=== PATIENT | male | born 1990 | race African-American/Black ===

== ENCOUNTER 2019-03-23 03:31 | Inpatient (IN) ==
[2019-03-23 04:32] LABS: Alanine Aminotransferase 36 U/L (12-78); Albumin Level 4.3 gm/dl (3.4-5.0); Aspartate Aminotransferase 37 U/L (15-37); BUN Creatinine Ratio 5.7 (10-20); Blood Urea Nitrogen 7 mg/dl (7-18); Calcium 8.5 mg/dl (8.5-10.1); Carbon Dioxide 27 mmol/L (21-32); Chloride 107 mmol/L (98-107); Creatinine Clr Calc Pharmacy 127.4 ml/min; Est GFR (African American) 96.1; Est GFR (Non-African American) 82.9; Glucose 87 mg/dl (70-99); Potassium 3.3 mmol/L (3.5-5.1); Sodium 140 mmol/L (136-145)
[2019-03-23 04:35] LABS: Albumin Globulin Ratio 1.2 (0.9-2); Alkaline Phosphatase 55 U/L (45-117); Bilirubin,Total 0.6 mg/dl (0.2-1); Globulin 3.5 gm/dl (2.5-4.0); Total Protein 7.8 gm/dl (6.4-8.2)
[2019-03-23 05:47] LABS: Troponin I < 0.015 ng/ml (0-0.045)
[2019-03-23 05:48] LABS: Basophils # (auto) 0.02 K/uL (0-0.2); Basophils % (auto) 0.4 %; Eosinophils # (auto) 0.23 K/uL (0-0.5); Eosinophils % (auto) 5.2 %; Hematocrit (blood only) 42.7 % (42-52); Hemoglobin 14.8 g/dL (14.0-18.0); Lymphocytes # (auto) 1.89 K/uL (1.2-3.4); Lymphocytes % (auto) 42.5 %; Mean Corpuscular Hemoglobin 30.5 pg (25-34); Mean Corpuscular Hgb Conc 34.7 g/dL (32-36); Monocytes # (auto) 0.31 K/uL (0.11-0.59); Neutrophils % (auto) 44.9 %; Platelet Count 274 K/uL (130-400); RDW Coefficient of Variation 13.2 % (11.5-14.5); RDW Standard Deviation 42.6 fL (36.4-46.3); Red Blood Count 4.85 M/uL (4.7-6.1); White Blood Count 4.45 K/uL (4.8-10.8)
[2019-03-23] MEDS ORDERED: GABAPENTIN 1200MG ALCOHOL WITHDRAWAL LOAD PO STA (06:53)
[2019-03-23] MEDS ORDERED: ACETAMINOPHEN 325 MG TAB PO PRN (06:53)
[2019-03-23] MEDS ORDERED: MULTI-VITAMIN INFUSION 10 ML, THIAMINE HCL 100 MG, FOLIC ACID 1 MG in SODIUM CHLORIDE 0... IV ONE (06:53)
[2019-03-23] MEDS ORDERED: SODIUM CHLORIDE 0.9% 1000ML 1,000 ML IV SCH (06:53)
[2019-03-23] MEDS ORDERED: LORazepam 2 MG/4 ML VIAL IV PRN (06:53)
[2019-03-23] MEDS ORDERED: LORazepam 1 MG/2 ML VIAL IV PRN (06:53)
[2019-03-23] MEDS ORDERED: NITROGLYCERIN SL 0.4 MG/TAB TAB SL PRN (06:53)
[2019-03-23] MEDS ORDERED: LORazepam 3 MG/6 ML VIAL IV PRN (06:53)
[2019-03-23] MEDS ORDERED: ATIVAN IV ALCOHOL WITHDRAWL IV PRN (06:53)
[2019-03-23] MEDS ORDERED: ONDANSETRON INJ 2 MG/ML 2 ML VIAL IV PRN (06:53)
[2019-03-23] MEDS ORDERED: GABAPENTIN 600 MG TAB PO SCH ×2 (08:00→14:00)
[2019-03-23] MEDS: POTASSIUM CHLORIDE / WTR 10 MEQ/100 ML PLCT IV SCH ×2 (08:03→10:31)
--- NOTE | 2019-03-23 09:16 | History and Physical Report ---
DATE OF ADMISSION: 03/23/2019 CHIEF COMPLAINT: Alcohol intoxication. HISTORY OF PRESENT ILLNESS: This is a 28-year-old male who was found with alcohol intoxication in [facility] and was brought into the hospital. Currently, the patient seems to be somewhat pleasantly confused. He says he drinks alcohol but says he drinks once in a while. He can tell his name, when asked his date of he repeats his name and he could tell this is March and he says this is [place] when I asked where he is. He denies any pain. Denies any headache, no chest pain, no abdominal pain, no nausea. Speaks in a very low voices, says he is doing fine and keeps on laughing. Could not get complete history from the patient because he appears in somewhat altered state. His alcohol level is 295. Drug screen was ordered which is still not collected at this time and the patient's systolic blood pressure in the 90s, afebrile. The question of second degree heart block on the monitor and EKG shows diffuse ST elevations,possible pericarditis. ALLERGIES: Could not know at this time. PAST MEDICAL HISTORY: The patient denies any past medical history. PAST SURGICAL HISTORY: Denies any past surgical history. MEDICATIONS: None. FAMILY HISTORY: The patient denies any family history. SOCIAL HISTORY: He says he only drinks alcohol. Denies any smoking or drugs. REVIEW OF SYSTEMS: As per HPI, could not get complete review of symptoms. PHYSICAL EXAMINATION: GENERAL: The patient is alert and awake, not in acute distress, seemed to be pleasantly confused. VITAL SIGNS: Temperature 36.3, pulse 62, respiratory rate 18, blood pressure 93/50, oxygen 99% on room air. HEENT: No pallor, no icterus. Pupils equal, round, reactive to light. NECK: No JVD, no neck masses, no carotid bruits. CARDIOVASCULAR: S1, S2 heard, regular rate and rhythm, no murmur, no gallop. RESPIRATORY SYSTEM: Normal AP diameter. No accessory muscle use. No wheezing, no crackles. ABDOMEN: Soft, bowel sounds present, nontender. No distention. CENTRAL NERVOUS SYSTEM: Alert and awake, oriented to name, thinks he is in [place] and says this is March. Speech is clear. Obeys commands and moves extremities. EXTREMITIES: No edema, no erythema. LABORATORY DATA: WBC 4.4, hemoglobin 14.8, hematocrit 42.7, platelets 274. Sodium 140, potassium 3.3, chloride 107, bicarbonate 27, BUN 7, creatinine 1.1, serum glucose 87, calcium 8.4, total bilirubin 0.6, AST 37, ALT 36, alkaline phosphatase is 54. Troponin I less than 0.015. Ethyl alcohol 295. EKG: Normal sinus rhythm at [address] changes, possible acute pericarditis. ASSESSMENT AND PLAN: This is a 28-year-old male who presents with alcohol intoxication. 1. Alcohol intoxication. Alcohol level is 295. Patient is currently confused. Patient says he drinks once in a while, but seems pleasantly confused at this time, so we will monitor him in tele floor. Keep him on clear liquid diet, IV fluids. We will give him banana bag, IV thiamine, IV folic acid daily. Follow folate levels and vitamin levels.. Follow repeat LFTs. We will keep him on alcohol withdrawal protocol with gabapentin, IV Ativan p.r.n. 2. EKG changes. There is question of secondary heart block on the monitor and EKG shows diffuse ST elevations and possible pericarditis. The patient denies chest pain. We will follow serial cardiac enzymes, echocardiogram, consult cardiology for further recommendations. We will follow urine drug screen. 3. Deep venous thrombosis prophylaxis, sequential compression devices for now. 4. Disposition: Admit to tele floor. Expect discharge home and follow with his family doctor. Code status. full code. MTDD
--- NOTE | 2019-03-23 10:08 | Electrocardiogram Report ---
Test Reason : Blood Pressure : / mmHG Vent. Rate : 060 BPM Atrial Rate : 060 BPM P-R Int : 180 ms QRS Dur : 092 ms QT Int : 422 ms P-R-T Axes : 066 044 050 degrees QTc Int : 422 ms Normal sinus rhythm Acute pericarditis vs. repolarization variant, clinical correlation necessary Abnormal ECG No previous ECGs available Confirmed by Himanshu Meadows ([id number]) on 03/23/2019 10:07:59 AM Referred By: REFERRED SELF Confirmed By:Himanshu Meadows
--- NOTE | 2019-03-23 10:14 | Cardiology Progress Note ---
Date of Service March 23, 2019 Assessment & Plan (1) Alcohol overdose: (2) Second degree heart block: Laboratory studies are relevant for a potassium level of 3.4 this morning, he is received IV replacement in the interim. EKG performed this morning 03/23/2019 at 5:06 AM revealed normal sinus rhythm at 60 bpm with early repolarization.Similar findings were noted on repeat EKG at 8 AM. I believe the patient had transient 2-1 AV block in the setting of high vagal tone. He was apparently somnolent in the setting of acute alcohol ingestion, and woke up and vomited. No other rhythm disturbances noted. Await repeat chemistry panel to be performed at about 12 noon today to reassess electrolytes. An echocardiogram has been performed and will be reviewed. Patient was counseled on the need to not overindulge in alcohol. He denies any past history of syncope. Further recommendations to be forthcoming after I review his echo. Subjective Patient is awake and conversant. Feels well. Denies any chest discomfort or shortness of breath. 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 He was visiting his brother at [facility], and he states that he had too much to drink last night. He arrived to the hospital via EMS just after 3 AM having been found sleeping on the ledge by the [email or web address] store. He states that he does not typically drink to excess and this was a rare event for him. He describes that at baseline he participates in athletics without physical limitation, and he is never had any syncopal episodes per his description. At 3:51 AM the patient was observed on telemetry to have a 1 minute episode of transient Mobitz type II second-degree AV block with 2-1 conduction that lasted approximately a minute. The patient does not recall what was going on during this time, but per my discussion with nursing, he had apparently been sleeping, and then woke up, was nauseous and vomited, and this correlated with when he had the transient bradycardia. Review of Systems Review of Systems: All systems reviewed & are unremarkable except as noted in HPI & below Physical Exam Physical Exam: Temp Pulse Resp BP Pulse Ox 36.6 C 75 18 117/79 100 03/23/19 06:50 03/23/19 06:50 03/23/19 06:50 03/23/19 06:50 03/23/19 06:50 Constitutional: WD/WN, vitals as above Respiratory: normal respiratory effort, lungs clear to auscultation Cardiovascular: RRR, no murmur, no edema Gastrointestinal (Abdomen): normal bowel sounds, soft, nontender, no hepatosplenomegaly Skin: no rashes, warm and dry Neurologic: PERRL, EOMI, accommodation nl, no face palsy, no dysarthria Results & Data Vital Signs (Past 12 Hours) Vital Signs Temp Pulse Pulse Resp BP BP Pulse Ox 03/23/19 06:50 36.6 C 75 18 117/79 100 03/23/19 06:31 66 20 97/66 L 93 03/23/19 05:38 62 18 93/50 L 99 03/23/19 05:02 63 18 99/61 L 99 03/23/19 04:08 62 16 125/67 98 03/23/19 03:45 99 03/23/19 03:41 36.3 C L 95 H 18 118/83 99 (1) Alcohol overdose Encounter type: initial encounter Injury intent: accidental or unintentional Qualified Code(s): T51.91XA - Toxic effect of unspecified alcohol, accidental (unintentional), initial encounter
--- NOTE | 2019-03-23 10:17 | Electrocardiogram Report ---
Test Reason : Blood Pressure : / mmHG Vent. Rate : 073 BPM Atrial Rate : 073 BPM P-R Int : 156 ms QRS Dur : 092 ms QT Int : 404 ms P-R-T Axes : 088 089 040 degrees QTc Int : 445 ms Normal sinus rhythm Acute pericarditis vs. repolarization variant Borderline ECG When compared with ECG of 23-MAR-2019 05:06, No significant change was found Confirmed by Himanshu Meadows ([id number]) on 03/23/2019 10:16:34 AM Referred By: REFERRED SELF Confirmed By:Himanshu Meadows
[2019-03-23 12:15] LABS: BUN Creatinine Ratio 4.3 (10-20); Blood Urea Nitrogen 4 mg/dl (7-18); Calcium 8.4 mg/dl (8.5-10.1); Carbon Dioxide 27 mmol/L (21-32); Chloride 110 mmol/L (98-107); Creatinine Clr Calc Pharmacy 177.4 ml/min; Est GFR (African American) 135.8; Est GFR (Non-African American) 117.2; Glucose 86 mg/dl (70-99); Magnesium 2.2 mg/dl (1.8-2.4); Potassium 3.8 mmol/L (3.5-5.1); Sodium 143 mmol/L (136-145)
[2019-03-23 12:27] LABS: Troponin I < 0.015 ng/ml (0-0.045)
--- NOTE | 2019-03-23 12:29 | Hospitalist Progress Note ---
Date of Service March 23, 2019 Assessment & Plan (1) Alcohol overdose: "HISTORY OF PRESENT ILLNESS: This is a 28-year-old male who was found with alcohol intoxication in [facility] and was brought into the hospital. Currently, the patient seems to be somewhat pleasantly confused. He says he drinks alcohol but he really drinks once in a while. He says he can tell his name when asked his date of he repeats his name and he could tell this is March and he says this is [place] when I asked where he is. He denies any pain. Denies any headache, no chest pain, no abdominal pain, no nausea. Speaks in a very low voices, says he is doing fine and keeps on laughing. Could not get complete history from the patient because he appears in somewhat altered state. His alcohol level is 295. No drug screen was ordered which is still not collected at this time and the patient's systolic blood pressure in the 90s, afebrile. The question of secondary heart block on the monitor and EKG shows diffuse ST elevations" as per steam trap man " EKG performed this morning 03/23/2019 at 5:06 AM revealed normal sinus rhythm at 60 bpm with early repolarization.Similar findings were noted on repeat EKG at 8 AM. I believe the patient had transient 2-1 AV block in the setting of high vagal tone. He was apparently somnolent in the setting of acute alcohol ingestion, and woke up and vomited. No other rhythm disturbances noted." patient at baseline mental status on arrival from emergency room to medical telemetry avendaño and no chest pain with normal physical exam echocardiogram is 55 to 60% ejection fraction with no wall motion abnormalities and no valvular heart disease - no noted pericarditis or pericardial effusions admission serum potassium is 3.3 and is repleted to 3.8 patient normal sinus rhythm on telemetry while on the medical telemetry avendaño. no further workup or testing as per steam trap man. (2) Second degree heart block: EKG abnormalities and concern of a 2nd Degree Heart block is diagnosed as a "transient 2 to 1 AV block in the setting of high vagal tone" likely from vomiting from alcohol use Hypokalemia -mildly low as serum potassium 3.3 and resolved with potassium supplementation discharge diagnosis Alcohol overdose EKG abnormalities and concern of a 2nd Degree Heart block is diagnosed as a "transient 2 to 1 AV block in the setting of high vagal tone" likely from vomiting from alcohol use Hypokalemia (mildly low as serum potassium 3.3 and resolved with potassium supplementation) Subjective no chest pain, breathing on room air. interacts appropriately. no dizziness. no headache. no nausea currently, speaks in full sentences. demonstrates understanding of medical care and hospital workup and discharge recommendations Review of Systems Review of Systems: All systems reviewed & are unremarkable except as noted in HPI & below Physical Exam Constitutional: comfortable Eyes: PERRL, conjunctivae normal, anicteric sclerae EOM intact bilaterally ENMT: external ear and nose normal, oropharynx normal Neck: trachea midline, no thyromegaly normal visual inspection Respiratory: normal respiratory effort, lungs clear to auscultation Cardiovascular: RRR, no murmur, no edema Gastrointestinal (Abdomen): normal bowel sounds, soft, nontender, no hepatosplenomegaly Musculoskeletal: Head/Neck/Chest: normocephalic and head atraumatic Neurologic: PERRL, EOMI, accommodation nl, no face palsy, no dysarthria CN's II-XI intact bilaterally Psychiatric: A+Ox3, euthymic affect Results & Data ([facility]) Vital Signs (Past 12 Hours) Vital Signs Temp Pulse Pulse Resp BP BP Pulse Ox 03/23/19 12:00 36.3 C L 59 L 18 119/79 100 03/23/19 06:50 36.6 C 75 18 117/79 100 03/23/19 06:31 66 20 97/66 L 93 03/23/19 05:38 62 18 93/50 L 99 03/23/19 05:02 63 18 99/61 L 99 03/23/19 04:08 62 16 125/67 98 03/23/19 03:45 99 03/23/19 03:41 36.3 C L 95 H 18 118/83 99 (1) Alcohol overdose Encounter type: initial encounter Injury intent: accidental or unintentional Qualified Code(s): T51.91XA - Toxic effect of unspecified alcohol, accidental (unintentional), initial encounter
--- NOTE | 2019-03-23 12:36 | Communication Note ---
Date of Service: March 23, 2019 Repeat lab studies reveal normalization of his potassium. Echocardiogram reveals normal study. I would speculate that the transient 2-1 AV block was due to high vagal tone. No further cardiac work-up is felt to be indicated. Stable from my standpoint for discharge.
--- NOTE | 2019-03-23 13:16 | Discharge Summary ---
Date of Service March 23, 2019 Admission HPI Per Admitting Provider DATE OF ADMISSION: 03/23/2019 CHIEF COMPLAINT: Alcohol intoxication. HISTORY OF PRESENT ILLNESS: This is a 28-year-old male who was found with alcohol intoxication in [facility] and was brought into the hospital. Currently, the patient seems to be somewhat pleasantly confused. He says he drinks alcohol but he really drinks once in a while. He says he can tell his name when asked his date of he repeats his name and he could tell this is March and he says this is [place] when I asked where he is. He denies any pain. Denies any headache, no chest pain, no abdominal pain, no nausea. Speaks in a very low voices, says he is doing fine and keeps on laughing. Could not get complete history from the patient because he appears in somewhat altered state. His alcohol level is 295. No drug screen was ordered which is still not collected at this time and the patient's systolic blood pressure in the 90s, afebrile. The question of secondary heart block on the monitor and EKG shows diffuse ST elevations, ____ pericarditis. ALLERGIES: Could not ____at this time. PAST MEDICAL HISTORY: The patient denies any past medical history. PAST SURGICAL HISTORY: Denies any past surgical history. MEDICATIONS: None. FAMILY HISTORY: The patient denies any family history. SOCIAL HISTORY: He says he only drinks alcohol. Denies any smoking or drugs. REVIEW OF SYSTEMS: As per HPI, could not get complete review of symptoms. Admission Exam Per Admitting Provider GENERAL: The patient is alert and awake, not in acute distress, seemed to be pleasantly confused. VITAL SIGNS: Temperature 36.3, pulse 62, respiratory rate 18, blood pressure 93/50, oxygen 99% on room air. HEENT: No pallor, no icterus. Pupils equal, round, reactive to light. NECK: No JVD, no neck masses, no carotid bruits. CARDIOVASCULAR: S1, S2 heard, regular rate and rhythm, no murmur, no gallop. RESPIRATORY SYSTEM: Normal AP diameter. No accessory muscle use. No wheezing, no crackles. ABDOMEN: Soft, bowel sounds present, nontender. No distention. CENTRAL NERVOUS SYSTEM: Alert and awake, oriented to name, thinks he is in [place] and says this is March. Speech is clear. Obeys commands and moves extremities. EXTREMITIES: No edema, no erythema. Principal Diagnosis Alcohol overdose EKG abnormalities and concern of a 2nd Degree Heart block is diagnosed as a "transient 2 to 1 AV block in the setting of high vagal tone" likely from vomiting from alcohol use Hypokalemia (mildly low as serum potassium 3.3 and resolved with potassium supplementation) Discharge Exam Constitutional comfortable Eyes PERRL, conjunctivae normal, anicteric sclerae EOM intact bilaterally ENMT external ear and nose normal, oropharynx normal Neck trachea midline, no thyromegaly normal visual inspection Respiratory normal respiratory effort, lungs clear to auscultation Cardiovascular RRR, no murmur, no edema Gastrointestinal (Abdomen) normal bowel sounds, soft, nontender, no hepatosplenomegaly Musculoskeletal Head/Neck/Chest: normocephalic and head atraumatic Neurologic PERRL, EOMI, accommodation nl, no face palsy, no dysarthria CN's II-XI intact bilaterally Psychiatric A+Ox3, euthymic affect Discharge Data Allergies Allergy/AdvReac Type Severity Reaction Status Date / Time No Known Allergies Allergy Verified 03/23/19 07:00 Consultations 03/23/19 05:21 ED Decision to Admit Stat 03/23/19 06:53 Consult Case Management - Discharge Planning Routine 03/23/19 07:58 Consult Cardiology Routine Hospital Course (1) Alcohol overdose: "HISTORY OF PRESENT ILLNESS: This is a 28-year-old male who was found with alcohol intoxication in [facility] and was brought into the hospital. Currently, the patient seems to be somewhat pleasantly confused. He says he drinks alcohol but he really drinks once in a while. He says he can tell his name when asked his date of he repeats his name and he could tell this is March and he says this is [place] when I asked where he is. He denies any pain. Denies any headache, no chest pain, no abdominal pain, no nausea. Speaks in a very low voices, says he is doing fine and keeps on laughing. Could not get complete history from the patient because he appears in somewhat altered state. His alcohol level is 295. No drug screen was ordered which is still not collected at this time and the patient's systolic blood pressure in the 90s, afebrile. The question of secondary heart block on the monitor and EKG shows diffuse ST elevations" as per airplane and engine inspector " EKG performed this morning 03/23/2019 at 5:06 AM revealed normal sinus rhythm at 60 bpm with early repolarization.Similar findings were noted on repeat EKG at 8 AM. I believe the patient had transient 2-1 AV block in the setting of high vagal tone. He was apparently somnolent in the setting of acute alcohol ingestion, and woke up and vomited. No other rhythm disturbances noted." patient at baseline mental status on arrival from emergency room to medical telemetry avendaño and no chest pain with normal physical exam echocardiogram is 55 to 60% ejection fraction with no wall motion abnormalities and no valvular heart disease - no noted pericarditis or pericardial effusions admission serum potassium is 3.3 and is repleted to 3.8 patient normal sinus rhythm on telemetry while on the medical telemetry avendaño. no further workup or testing as per airplane and engine inspector. (2) Second degree heart block: EKG abnormalities and concern of a 2nd Degree Heart block is diagnosed as a "transient 2 to 1 AV block in the setting of high vagal tone" likely from vomiting from alcohol use Hypokalemia -mildly low as serum potassium 3.3 and resolved with potassium supplementation discharge diagnosis Alcohol overdose EKG abnormalities and concern of a 2nd Degree Heart block is diagnosed as a "transient 2 to 1 AV block in the setting of high vagal tone" likely from vomiting from alcohol use Hypokalemia (mildly low as serum potassium 3.3 and resolved with potassium supplementation) Total Time Total Time Spent Total Time Spent (In Minutes): 40 minutes Total Time Includes: Examination of the Patient, Discharge Planning, Medication Reconciliation and Communication With Other Providers Discharge Plan Discharge Items Patient Disposition: Home - Self-Care Reason For Visit: ALCOHOL INTOXICATION Discharge Diagnosis: Alcohol overdose EKG abnormalities and concern of a 2nd Degree Heart block is diagnosed as a "transient 2 to 1 AV block in the setting of high vagal tone" likely from vomiting from alcohol use Hypokalemia (mildly low as serum potassium 3.3 and resolved with potassium supplementation) Condition on Discharge: Good Activity: Resume your previous activity Non-emergency contact: Primary Care Provider Call non-emergency contact if: you have any medication questions Follow-up/Referrals: PCP,NO [Primary Care Provider] - Diet: Regular Addtl Attending Provider Instructions: patient should follow up with a primary care doctor locally patient should avoid alcohol Addtl Boiler Tester Provider Instructions: "HISTORY OF PRESENT ILLNESS: This is a 28-year-old male who was found with alcohol intoxication in [facility] and was brought into the hospital. Currently, the patient seems to be somewhat pleasantly confused. He says he drinks alcohol but he really drinks once in a while. He says he can tell his name when asked his date of he repeats his name and he could tell this is March and he says this is [place] when I asked where he is. He denies any pain. Denies any headache, no chest pain, no abdominal pain, no nausea. Speaks in a very low voices, says he is doing fine and keeps on laughing. Could not get complete history from the patient because he appears in somewhat altered state. His alcohol level is 295. No drug screen was ordered which is still not collected at this time and the patient's systolic blood pressure in the 90s, afebrile. The question of secondary heart block on the monitor and EKG shows diffuse ST elevations" as per airplane and engine inspector " EKG performed this morning 03/23/2019 at 5:06 AM revealed normal sinus rhythm at 60 bpm with early repolarization.Similar findings were noted on repeat EKG at 8 AM. I believe the patient had transient 2-1 AV block in the setting of high vagal tone. He was apparently somnolent in the setting of acute alcohol ingestion, and woke up and vomited. No other rhythm disturbances noted." patient at baseline mental status on arrival from emergency room to medical telemetry avendaño and no chest pain with normal physical exam echocardiogram is 55 to 60% ejection fraction with no wall motion abnormalities and no valvular heart disease - no noted pericarditis or pericardial effusions admission serum potassium is 3.3 and is repleted to 3.8 patient normal sinus rhythm on telemetry while on the medical telemetry avendaño. no further workup or testing as per airplane and engine inspector. Pending Studies at Discharge: No Stand-Alone Forms: My [facility] [employer], Smoking Cessation Medications and DC Order Prescriptions: No Action Unobtainable RF: 0 Discharge Orders: Discharge Order (Routine); Ordered 03/23/19 Ordered By: Yoandy White Admission Data Admit Date/Time: 03/23/19 05:51 Attending Provider: Yoandy White Admit Provider: Robbie Rose Primary Care Provider: PCP,NO Other Providers: Robbie Rose ; Jose De Leon Other Interventions: Discharge Summary Assessment (RN) Last Done: 03/23/19 12:48 DC Date/Time DO NOT enter until pt leaves facility: 03/23/19 13:03
--- NOTE | 2019-03-23 23:22 | Emergency Department Note ---
Entered by Caity Russell acting as a scribe for Hannah Whittington DO History of Present Illness General Chief complaint: Alcohol Intoxication Stated complaint: ALCOHOL Time Seen by Provider: 03/23/19 03:35 Source: patient History of Present Illness Onset (ago): hour(s) less than 1 Pain Consistency: + constant Relieved By: + none Exacerbated By: + none Associated symptoms: + confusion Treatments prior to arrival: none The patient is a 28 year old male who presents to the Emergency Room with complaints of alcohol intoxication. The patient was found intoxicated sitting on the sidewalk in [place] [facility], in front of [facility]. He was stumbling around and refusing to answer questions. Once at the hospital, the patient would not communicate where he was or what he was drinking. Home Medications Home Medications Medication Instructions Recorded Confirmed Type Unobtainable 03/23/19 03/23/19 History Allergies Allergy/AdvReac Type Severity Reaction Status Date / Time No Known Allergies Allergy Verified 03/23/19 07:00 Past Med/Surg History Medical History No pertinent past medical history Surgical History No pertinent past surgical history Social History Preferred Language: Azerbaijani Communication Ability: Effective Archives Technician Required: No Beliefs That Will Affect Care: None Current Living Situation: Family Other Information That Helps Us Care for You: No Feels Safe at Home: Yes Safety Concerns: Feels Safe At This Time Smoking Status: Never smoker Hx Alcohol Use: Yes Alcohol type: beer, wine and hard liquor Hx Substance Use: No Review of Systems See HPI for pertinent positives & negatives. and A total of 10 systems reviewed and were otherwise negative Physical Exam Vital Signs Vital Signs - 24 hr 03/23/19 03:41 03/23/19 03:45 03/23/19 04:08 Temperature 36.3 C L Temperature Source Oral Pulse Rate 95 H Pulse Rate [Bilateral Apical] 62 Respiratory Rate 18 16 Respiratory Effort / Characteristics Non-Labored Spontaneous Respiratory Depth Normal Blood Pressure 118/83 Blood Pressure [Right Arm] 125/67 Blood Pressure Mean 94 Blood Pressure Mean [Right Arm] 86 Blood Pressure Position [Right Arm] Lying Pulse Oximetry 99 99 98 Oxygen Delivery Method Room Air Room Air Room Air Sepsis Recent Fever Within 48 Hours No Sepsis Action Taken by Nursing No Action Required 03/23/19 05:02 03/23/19 05:38 Temperature Temperature Source Pulse Rate Pulse Rate [Bilateral Apical] 63 62 Respiratory Rate 18 18 Respiratory Effort / Characteristics Respiratory Depth Blood Pressure Blood Pressure [Right Arm] 99/61 L 93/50 L Blood Pressure Mean Blood Pressure Mean [Right Arm] 73 64 Blood Pressure Position [Right Arm] Pulse Oximetry 99 99 Oxygen Delivery Method Room Air Room Air Sepsis Recent Fever Within 48 Hours Sepsis Action Taken by Nursing HEENT: Head - normocephalic and atraumatic Pupils are equal, round, and reactive to light. Extraocular eye muscles are intact, and sclera are anicteric. Nose - moist nasal mucosa without discharge. Mouth - moist buccal mucosa. Oropharynx is nonerythematous and there is no tonsillar exudate or edema noted. Neck: Supple; no JVD, nuchal rigidity, cervical lymphadenopathy, or auscultated bruits. Heart: Regular rate and rhythm. There is a normal S1 and S2 with no murmurs, clicks, or gallops appreciated. Lungs: Clear to auscultation bilaterally with no wheezes, rales, or rhonchi. Abdomen: Soft, completely nontender, nondistended, with good bowel sounds. There are no palpable pulsatile masses or hepatosplenomegaly. There is no guarding, rigidity, or rebound noted. Extremities: No evidence of cyanosis, clubbing, or edema. There are easily palpable peripheral pulses. Skin: warm and dry with good turgor and no rashes. Course Course 0345: The patient was evaluated in B 11. A complete history and physical was performed. The patient had laboratory studies drawn. An order was placed for continuous cardiac monitoring. He was in a normal sinus rhythm and a sinus bradycardia between 56 and 72. 0401: The monitor motor pool clerk notified me that the patient went into bradycardic rhythm, 2nd degree heart block. Mobitz type 2. Soon changed to tachycardic rate. I went to the bedside immediately. Nursing staff and security were at the bedside and the patient was in no active distress. In fact, he was laying on his side and was not dry heaving or vomiting. His heart rate went as low as 30. I attempted to wake the patient up at that time but he continued to sleep. His blood pressure remained stable O2 saturation remained stable 0502: The patient is awake, and denies cardiac history or family history of heart issues. He is willing to be admitted to the hospital for further evaluation. 0521: I spoke to Dr. Rose, [facility] hospitalist, who agreed to take over care of the patient. The patient is agreeable to the treatment plan and understands. He will stay for further evaluation. 0613: The patient has ripped his IV out and told nursing staff that he wants to leave. After another discussion he has a better understanding of what is going on and is still willing to stay. 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 He denies any drug use but does admit to drinking alcohol tonight. Administered Medications Discontinued Medications Gabapentin (Neurontin) 1,200 mg PO TODAY@ [facility] Stop: 03/23/19 08:01 Last Admin: 03/23/19 10:31 Dose: 1,200 mg Documented by: [id number] Multivitamins 10 ml/ Thiamine HCl 100 mg/ Folic Acid 1 mg/Sodium Chloride 1,011.2 mls @ 500 mls/hr IV .Q2H2M ONE Stop: 03/23/19 08:54 Last Admin: 03/23/19 08:06 Dose: 500 mls/hr Documented by: [id number] Potassium Chloride (K Dami / Wtr) 10 meq in 100 mls @ 100 mls/hr IV Q1H [facility] Stop: 03/23/19 08:52 Last Admin: 03/23/19 10:31 Dose: 100 mls/hr Documented by: [id number] Infusion: 03/23/19 09:03 Dose: 100 mls/hr Documented by: [id number] Admin: 03/23/19 08:03 Dose: 100 mls/hr Documented by: [id number] Medical Decision Making Differential Diagnosis Differential diagnosis includes: alcohol overdose, drug intoxication, hypoglycemia, head injury, as well as others were considered. Medical Records Attestation: I reviewed the patient's medical records. Home Medications Current Medication List: was personally reviewed by me Laboratory Data Attestation: I reviewed the patient's lab results. Result diagrams: 03/23/19 05:30 03/23/19 11:37 Lab Results 03/23/19 03/23/19 03/23/19 Range/Units 04:04 04:04 05:30 WBC 4.45 L (4.8-10.8) K/uL RBC 4.85 (4.7-6.1) M/uL Hgb 14.8 (14.0-18.0) g/dL Hct 42.7 (42-52) % MCV 88.0 (80-100) fL MCH 30.5 (25-34) pg MCHC 34.7 (32-36) g/dL RDW Std Deviation 42.6 (36.4-46.3) fL RDW Coeff of [place] 13.2 (11.5-14.5) % Plt Count 274 (130-400) K/uL MPV 10.0 (7.4-10.4) fL Immature Gran % (Auto) 0.0 % Neut % (Auto) 44.9 % Lymph % (Auto) 42.5 % [place] % (Auto) 7.0 % Eos % (Auto) 5.2 % Baso % (Auto) 0.4 % Immature Gran # (Auto) 0.00 (0.00-0.02) K/uL Neut # (Auto) 2.00 (1.4-6.5) K/uL Lymph # (Auto) 1.89 (1.2-3.4) K/uL [place] # (Auto) 0.31 (0.11-0.59) K/uL Eos # (Auto) 0.23 (0-0.5) K/uL Baso # (Auto) 0.02 (0-0.2) K/uL Sodium 140 (136-145) mmol/L Potassium 3.3 L (3.5-5.1) mmol/L Chloride 107 (98-107) mmol/L Carbon Dioxide 27 (21-32) mmol/L Anion Gap 6.0 (3-11) BUN 7 (7-18) mg/dl Creatinine 1.18 (0.6-1.4) mg/dl Est Cr Clr Drug Dosing 127.4 ml/min Est GFR ( Amer) 96.1 Est GFR (Non-Af Amer) 82.9 BUN/Creatinine Ratio 5.7 L (10-20) Glucose 87 (70-99) mg/dl Calcium 8.5 (8.5-10.1) mg/dl Total Bilirubin 0.6 (0.2-1) mg/dl AST 37 (15-37) U/L ALT 36 (12-78) U/L Alkaline Phosphatase 55 (45-117) U/L Troponin I < 0.015 (0-0.045) ng/ml Total Protein 7.8 (6.4-8.2) gm/dl Albumin 4.3 (3.4-5.0) gm/dl Globulin 3.5 (2.5-4.0) gm/dl Albumin/Globulin Ratio 1.2 (0.9-2) Ethyl Alcohol mg/dL 295.0 H (0-3) mg/dl ECG Data Attestation: I personally reviewed and interpreted this ECG as follows: Indication: + bradycardia Rate (beats per minute): [address] segments: + ST elevation (in all leads - concerning for pericarditis) Blood Pressure Blood Pressure Findings: Low blood pressure Blood Pressure Disposition: further management by hospitalist ANALY Narrative The patient is a 28 year old male who presents to the Emergency Room with complaints of alcohol intoxication. The patient was brought to the emergency department after consuming too much alcohol. There were no obvious signs of trauma or complaints of pain. They were observed closely throughout the night and remained stable while here in the ER. However, the patient was noted to have an episode of second-degree heart block Mobitz type II with a heart rate as low as 30. For this reason, I discussed the case with the [facility] hospitalist and they will evaluate for further management. The patient has no history of this. Impression & Plan Alcohol overdose, Second degree heart block Discharge Plan Visit Data *Final* Discharge Date/Time: 03/23/19 06:47 Chief Complaint: Alcohol Intoxication Stated Complaint: ALCOHOL ED Provider: Hannah Whittington Discharge Problem: Alcohol overdose, Second degree heart block Patient Disposition: Admitted As Inpatient Condition: Good Discharge Instructions Interventions: ED Discharge Assessment Last Done: 03/23/19 06:47 Discharge Problem: Alcohol overdose Qualifiers: Encounter type: initial encounter Injury intent: accidental or unintentional Qualified Code(s): T51.91XA - Toxic effect of unspecified alcohol, accidental ( unintentional), initial encounter The scribe's documentation has been prepared under my direction and personally reviewed by me in its entirety. I confirm that the note above accurately ref lects all work, treatment, procedures, and medical decision making performed by me.
[2019-03-24] MEDS ORDERED: GABAPENTIN 600 MG TAB PO SCH (04:00)
[2019-03-24] MEDS ORDERED: FOLIC ACID 1 MG in SYRINGE 9.8 ML IV SCH (09:00)
[2019-03-24] MEDS ORDERED: THIAMINE HCL 100 MG in SYRINGE 9 ML IV SCH (09:00)
--- NOTE | 2019-03-24 09:08 | Electrocardiogram Report ---
Test Reason : Blood Pressure : / mmHG Vent. Rate : 065 BPM Atrial Rate : 065 BPM P-R Int : 166 ms QRS Dur : 088 ms QT Int : 410 ms P-R-T Axes : 079 088 007 degrees QTc Int : 426 ms Normal sinus rhythm with sinus arrhythmia ST elevation, consider early repolarization Borderline ECG When compared with ECG of 23-MAR-2019 08:00, No significant change was found Confirmed by Norberto Lucero ([id number]) on 03/24/2019 9:08:18 AM Referred By: [email or web address] Confirmed By:Norberto Lucero
[2019-03-25] MEDS ORDERED: GABAPENTIN 600 MG TAB PO SCH (10:00)
[2019-03-26] MEDS ORDERED: GABAPENTIN 600 MG TAB PO SCH (20:00)
== END 2019-03-23 13:03 | disposition home or self-care (01) | DRG 918 ==
LOC: ED 03:31 → 2S 05:51